=== PATIENT | female | born 1975 | race Caucasian/White ===

== ENCOUNTER 2018-10-18 20:20 | Emergency (ER) | END 2018-10-18 23:17 | disposition home or self-care (01) ==

== ENCOUNTER 2019-02-24 12:58 | Emergency (ER) | payer MEDICAID, OTHER ==
[~2019-02-24] VITALS: Ht 170.2 cm; Wt 84.4 kg
[~2019-02-24 12:58] MED LIST: IBUP1TAB13 PO
[2019-02-24 13:18] VITALS: BP 113/64; PULSE 88; RESP 18; Ht 170.2 cm; Wt 84.4 kg
--- NOTE | 2019-02-24 16:14 | ERD ---
ER Documentation Chief Complaint Chief Complaint BLOODY URINE X 3 DAYS ROS All systems reviewed and are negative except as per history of present illness. Medications Home Meds Reported Medications Ibuprofen/Diphenhydramine Cit (Advil Pm Caplet) 1 Each Tablet, 1 EACH PO, TAB 10/18/18 Allergies Allergies: Coded Allergies: No Known Allergy (Unverified , 10/18/18) PMhx/Soc History of Surgery: Yes (/HYSTER-2015) Anesthesia Reaction: No Hx Neurological Disorder: Yes (migraine) Hx Respiratory Disorders: No Hx Cardiac Disorders: Yes (Hypertension) Hx Psychiatric Problems: No Hx Miscellaneous Medical Probl: No Hx Alcohol Use: No Hx Substance Use: No Hx Tobacco Use: No Smoking Status: Never smoker Physical Exam Vitals Vital Signs Date Temp Pulse Resp B/P (MAP) Pulse Ox O2 O2 Flow FiO2 Time Delivery Rate 02/24/19 98.5 88 18 113/64 95 13:18 (80) Physical Exam Const: No acute distress Head: Atraumatic Eyes: Normal Conjunctiva ENT: Normal External Ears, Nose and Mouth. Neck: Full range of motion. No meningismus. Resp: Clear to auscultation bilaterally Cardio: Regular rate and rhythm, no murmurs Abd: Soft, non tender, non distended. Normal bowel sounds Skin: No petechiae or rashes Back: No midline or flank tenderness Ext: No cyanosis, or edema Neur: Awake and alert Psych: Normal Mood and Affect Result Diagram: 02/24/19 1451 02/24/19 1451 Results 24 hrs Laboratory Tests Test 02/24/19 14:51 White Blood Count 5.6 10^3/ul Red Blood Count 4.60 10^6/ul Hemoglobin 13.9 g/dl Hematocrit 40.2 % Mean Corpuscular Volume 87.4 fl Mean Corpuscular Hemoglobin 30.2 pg Mean Corpuscular Hemoglobin Concent 34.6 g/dl Red Cell Distribution Width 13.5 % Platelet Count 195 10^3/UL Mean Platelet Volume 12.1 fl Immature Granulocytes % 0.400 % Neutrophils % 65.2 % Lymphocytes % 23.8 % Monocytes % 6.7 % Eosinophils % 2.8 % Basophils % 1.1 % Nucleated Red Blood Cells % 0.0 /100WBC Immature Granulocytes # 0.020 10^3/ul Neutrophils # 3.7 10^3/ul Lymphocytes # 1.3 10^3/ul Monocytes # 0.4 10^3/ul Eosinophils # 0.2 10^3/ul Basophils # 0.1 10^3/ul Nucleated Red Blood Cells # 0.0 10^3/ul Urine Color YELLOW Urine Clarity SLIGHTLY CLOUDY Urine pH 6.0 Urine Specific [place] 1.014 Urine Ketones NEGATIVE mg/dL Urine Nitrite NEGATIVE mg/dL Urine Bilirubin NEGATIVE mg/dL Urine Urobilinogen NEGATIVE mg/dL Urine Leukocyte Esterase NEGATIVE Jocelin/ul Urine Microscopic RBC 15 /HPF Urine Microscopic WBC 1 /HPF Urine Squamous Epithelial Cells FEW /HPF Urine Hemoglobin 1+ mg/dL Urine Glucose NEGATIVE mg/dL Urine Total Protein NEGATIVE mg/dl Sodium Level 142 mmol/L Potassium Level 4.2 mmol/L Chloride Level 105 mmol/L Carbon Dioxide Level 29 mmol/L Anion Gap 8 Blood Urea Nitrogen 7 mg/dl Creatinine 0.62 mg/dl Est Glomerular Filtrat Rate mL/min > 60 mL/min Glucose Level 105 mg/dl Calcium Level 9.3 mg/dl Total Bilirubin 0.5 mg/dl Direct Bilirubin 0.00 mg/dl Indirect Bilirubin 0.5 mg/dl Aspartate Amino Transf (AST/SGOT) 16 IU/L Alanine Aminotransferase (ALT/SGPT) 17 IU/L Alkaline Phosphatase 63 IU/L Total Protein 7.4 g/dl Albumin 4.4 g/dl Globulin 3.00 g/dl Albumin/Globulin Ratio 1.46 Departure Diagnosis: Primary Impression: Hematuria Condition: Fair Patient Instructions: Hematuria Additional Instructions: Call your primary care doctor TOMORROW for an appointment during the next 1-2 days.See the doctor sooner or return here if your condition worsens before your appointment time. Need follow up with urology if blood in urine continues. ORLIN METCALF DO Feb 24, 2019 16:14
== END 2019-02-24 16:52 | disposition home or self-care (01) ==
LOC: FTE 12:58
DX: R31.9 Hematuria, unspecified (principal); I10 Essential (primary) hypertension
CPT/HCPCS: 36415; 76775; 80053; 81001; 85025; Z7502